=== PATIENT | female | born 2000 ===

== ENCOUNTER 2020-02-22 17:41 | Outpatient (CLI) | payer MEDICAID ==
[~2020-02-22] VITALS: Ht 154 cm; Wt 73.1 kg
--- NOTE | 2020-02-22 17:50 | NUR ---
MADIHA HAMMER presented to unit via ambulatory from ED, accompanied by mother , with c/o POSS YEAST INFECTION/UTI. MADIHA HAMMER weighed, gowned, voided, and to bed. EFHM and TOCO applied, VS taken. MADIHA HAMMER oriented to bed controls, call light, TV, heat, and A/C controls.
[2020-02-22 18:05] VITALS: BP 112/66
[2020-02-22 18:30] VITALS: BP 112/66
--- NOTE | 2020-02-22 18:45 | NUR ---
Dr Brown notified per phone of pt admission and complaints of yeast infection and bumps. Called office Friday and received Diflucan. Stated noticed bumps and become more tender today. On external exam noted white discharge with many lesions on external labia and internal vaginal area. Denies herpes or any STD. Currently with father of baby. Ordered wet prep, viral culture of lesions and cath UA. Procedures done at 1900. Pt tolerated well except more pain with insertion of staright catheter. Mother at bedside. Frequent movement. Denies cramping - pt having some uterine irritability.
[2020-02-22 19:29] LABS: BILIRUBIN,URINE NEGATIVE (NEGATIVE); CLARITY,URINE CLEAR; COLOR,URINE YELLOW; GLUCOSE, URINE (UA) NEGATIVE (NEGATIVE); KETONES,URINE TRACE (NEGATIVE); LEUKOCYTE ESTERASE ,URINE TRACE (NEGATIVE); NITRITE,URINE NEGATIVE (NEGATIVE); PH,URINE 6.5 (5-9); PROTEIN,URINE TRACE (NEGATIVE)
[2020-02-22 19:36] LABS: BACTERIA,URINE FEW /HPF; RBC,URINE 0-2 /HPF
[2020-02-22 19:37] LABS: RENAL EPITHELIAL CELLS,URINE 0-2 /HPF
[2020-02-22 19:38] LABS: AMORPHOUS SEDIMENT,UR MOD AMOR URATES /LPF; GRANULAR CASTS,URINE 0-2 /LPF
--- NOTE | 2020-02-22 20:00 | NUR ---
Discharge instructions reviewed with pt and mother. Pt denies any questions or concerns. Signature sheet signed, placed on chart. Pt ambulating off unit at time to private vehicle. No signs of distress noted.
--- NOTE | 2020-02-23 10:52 | Physician Query-Final Dx ---
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
== END 2020-02-22 20:00 | disposition home or self-care (01) ==
LOC: LDRP 17:41 → WSo 17:41
PROVIDERS: ATTEND Obstetrics & Gynecology
DX: O98.819 Other maternal infectious and parasitic diseases complicating pregnancy, unspecified trimester (principal); B37.3 Candidiasis of vulva and vagina; Z3A.00 Weeks of gestation of pregnancy not specified
CPT/HCPCS: 81000; 87088; 87210; 87252; 99214

== ENCOUNTER → 2020-03-13 | Outpatient (CLI) | payer MEDICAID ==
--- NOTE | 2020-03-13 13:47 | NUR ---
MADIHA HAMMER presented to unit via AMB from HOME FOR RHOGAM INJECTION. ORDER SENT TO BLOOD BANK.
--- NOTE | 2020-03-13 14:25 | NUR ---
RHOGAM IM IN LEFT VG SITE. SITE CLEAR.
--- NOTE | 2020-03-13 14:30 | NUR ---
DISMISSED AMB FROM WS IN STABLE CONDITION.
== END ==
LOC: LAB 13:34
PROVIDERS: ATTEND Obstetrics & Gynecology
DX: O26.899 Other specified pregnancy related conditions, unspecified trimester (principal)

== ENCOUNTER → 2020-03-31 | Outpatient (CLI) | payer MEDICAID | LOC: MERGE 12:24 → LABNPT 12:24 | PROVIDERS: ATTEND Obstetrics & Gynecology | DX: O28.8 Other abnormal findings on antenatal screening of mother (principal); Z3A.00 Weeks of gestation of pregnancy not specified | CPT/HCPCS: 82570; 84156 ==

== ENCOUNTER 2020-05-16 05:34 | Outpatient (CLI) | payer MEDICAID ==
[~2020-05-16] VITALS: Ht 154.9 cm; Wt 78.6 kg
[2020-05-16] MEDS ORDERED: VALA500T4 PO (14:23)
[2020-05-16] MEDS ORDERED: PREN-8 PO (14:23)
== END 2020-05-16 14:32 | disposition home or self-care (01) ==
LOC: PREOP 05:34
PROVIDERS: ATTEND Obstetrics & Gynecology
DX: Z01.818 Encounter for other preprocedural examination (principal)

== ENCOUNTER 2020-05-19 06:01 | Inpatient (IN) | payer MEDICAID ==
[~2020-05-19] VITALS: Ht 154.9 cm; Wt 78.1 kg
[2020-05-19] VITALS (11 sets, daily range): BP systolic 85–129; BP diastolic 44–81
[~2020-05-19 06:01] MED LIST: CITRIC ACID/SOB CIT (BICITRA) 30 ML UDC ONE; FAMOTIDINE 20MG/2ML IV (PEPCID) ONE; LACTATED RINGERS 1,000 ML IV ONE; METOCLOPRAMIDE INJ 10 MG/2 ML (REGLAN) ONE; PREN-8 PO; VALA500T4 PO; ceFAZolin 2 GM IV Premixed 50 ML ONE; metroNIDAZOLE 500MG/100ML IVPB 100 ML ONE
--- NOTE | 2020-05-19 06:08 | NUR ---
MADIHA HAMMER presented to unit via ambulatory from ED, accompanied by guest, with c/o TERM WITH HISTORY HSV. MADIHA HAMMER weighed, gowned, voided, and to bed. EFHM and TOCO applied, VS taken. MADIHA HAMMER oriented to bed controls, call light, TV, heat, and A/C controls. above and further assessments per effie michelle.
[2020-05-19] MEDS ORDERED: LACTATED RINGERS 1,000 ML IV PRN ×3 (06:14)
[2020-05-19] MEDS ORDERED: metroNIDAZOLE 500MG/100ML IVPB 100 ML IV ONE ×2 (06:15→06:30)
[2020-05-19] MEDS ORDERED: METOCLOPRAMIDE INJ 10 MG/2 ML (REGLAN) IV ONE (06:15)
[2020-05-19] MEDS ORDERED: ceFAZolin 2 GM IV Premixed 50 ML IV ONE ×2 (06:15→06:30)
[2020-05-19] MEDS ORDERED: FAMOTIDINE 20MG/2ML IV (PEPCID) IV ONE (06:15)
[2020-05-19] MEDS ORDERED: CITRIC ACID/SOB CIT (BICITRA) 30 ML UDC PO ONE (06:15)
[2020-05-19 06:35] LABS: BASOPHILS % (AUTO) 0 % (0-10); EOSINOPHILS # (AUTO) 0.2 10^3/uL (0.0-0.3); EOSINOPHILS % (AUTO) 1 % (0-10); HEMATOCRIT 31 % (35-52); HEMOGLOBIN 9.6 G/DL (11.5-16.0); LYMPHOCYTES # (AUTO) 3.1 X 10^3 (1.0-4.0); LYMPHOCYTES % (AUTO) 24 % (12-44); MEAN CORPUSCULAR HEMOGLOBIN 22 PG (25-34); MEAN CORPUSCULAR HGB CONC 31 G/DL (32-36); MEAN CORPUSCULAR VOLUME 71 FL (80-99); MEAN PLATELET VOLUME 10.8 FL (7.4-10.4); MONOCYTES # (AUTO) 0.9 X 10^3 (0.0-1.0); MONOCYTES % (AUTO) 7 % (0-12); NEUTROPHILS # (AUTO) 8.9 X 10^3 (1.8-7.8); NEUTROPHILS % (AUTO) 68 % (42-75); PLATELET COUNT 264 10^3/uL (130-400); RED CELL DISTRIBUTION WIDTH 17.4 % (10.0-14.5)
--- NOTE | 2020-05-19 06:39 | NUR ---
SCRNA in room at bedside.
[2020-05-19] MEDS ORDERED: OXYTOCIN PRE-MIX DRIP 1,000 ML IV ONE (06:50)
[2020-05-19] MEDS ORDERED: fentaNYL INJECTION 100 MCG/2 ML AMP ONE (06:51)
[2020-05-19] MEDS ORDERED: BUPIVACAINE 0.5% 30 ML (SENSORCAINE) VIAL ONE (06:51)
[2020-05-19] MEDS ORDERED: D5 LR IV SOLUTION 1,000 ML IV SCH (07:26)
[2020-05-19] MEDS ORDERED: OXYTOCIN PRE-MIX DRIP 500 ML IV SCH (07:26)
--- NOTE | 2020-05-19 07:26 | History & Physical ---
History and Physical Date Seen by Provider: May 19, 2020 Time Seen by Provider: 07:24 This patient is a 20-year-old 1 female presenting now for primary delivery due to term at 38 weeks gestation with prodrome for HSV-2. Patient denies rupture membranes or bleeding. Her GBS culture was negative. Patient is having regular contractions but feels little or no pressure or pain. She has noted some small red and vesicular lesions on the labia. Her has been uncomplicated except for the newly diagnosed HSV-2 Allergies are none Medications are vitamins and Valtrex 500 mg once a day Medical social and surgical histories are per the antepartum record HEENT exam is normal Neck is supple no lymphadenopathy no thyromegaly Abdomen is gravid soft nontender nondistended Extremities show no clubbing or cyanosis. There is no Homans sign. Pelvic exam is deferred Assessment and plan at 38 weeks gestation with a history of HSV with primary episode during this . Patient complains of prodrome symptoms with labial irritation burning and new-onset lesions on the labia. Plan is to proceed with primary delivery. 38 week gestation with HSV prodrome Allergies and Home Medications Allergies Coded Allergies: No Known Drug Allergies (Unverified , 05/19/20) Home Medications Docusate Sodium 100 Mg Capsule, 100 MG PO BID Prescribed by: JEAN LEWIS on 05/19/20728 Ibuprofen 800 Mg Tablet, 800 MG PO Q6HR Prescribed by: JEAN LEWIS on 05/19/20728 Oxycodone HCl/Acetaminophen 1 Each Tablet, 1 TAB PO Q4HR PRN for PAINMODS Prescribed by: JEAN LEWIS on 05/19/20728 Vit W-Ca,Fe,FA(<1 mg) 1 Each Tablet, 1 EACH PO DAILY, (Reported) Valacyclovir HCl 500 Mg Tablet, 500 MG PO DAILY, (Reported) Patient Home Medication List Home Medication List Reviewed: Yes Clinical Quality Measures DVT/VTE Risk/Contraindication: Risk Factor Score Per Nursin RFS Level Per Nursing on Admit: 1=Low/No VTE PPX JEAN MEYER MD May 19, 2020 07:26
--- NOTE | 2020-05-19 07:26 | NUR ---
Off of monitor and ambulated to OR. Addendum: 05/19/20 at 0757 by JODY DELVALLE RN R 155 with accelerations. Contractions 5-6 minutes apart lasting 100 seconds. Pt not aware of contractions.
[2020-05-19] MEDS ORDERED: OXYC1TAB12 PO (07:29)
[2020-05-19] MEDS ORDERED: IBUP-1780 PO (07:29)
[2020-05-19] MEDS ORDERED: DCS100C PO (07:29)
[2020-05-19] MEDS ORDERED: ONDANSETRON 4 MG/2 ML (SDV) Z0FRAN IVP PRN ×2 (07:30→08:45)
[2020-05-19] MEDS ORDERED: TETANUS,DIPTH,PERTUSS P/F (BOOSTRIX) 0.5 ML VIAL IM ONE (07:30)
[2020-05-19] MEDS ORDERED: MEASLES,MUMPS,RUBELLA 1 EA INJ SC ONE (07:30)
--- NOTE | 2020-05-19 07:30 | Discharge Inst-Surgical ---
Discharge Inst-Surgical Depart Medication/Instructions New, Converted or Re-Newed RX: RX on Chart Consults/Follow Up Patient Instructions: As directed Orders & Referrals Follow Up Appt: RTC 1 week for incision check. Call to make follow up appt. for patient in 4 weeks. Wound Care: Remove jacek, apply benzoin and steri strips. Activity Per routine post instructions. Please call in RX to patient pharmacy. Diet as tolerated Patient may shower or tub bathe as desired. Continue home meds Activity Activity as Tolerated: No Diet Discharge Diet: No Restrictions JEAN MEYER MD May 19, 2020 07:30
[2020-05-19] MEDS ORDERED: PHENYLEPHRINE 100 MCG/ML 10 ML (ANESTHESIA) SYR ONE (07:40)
[2020-05-19] MEDS ORDERED: ONDANSETRON 4 MG/2 ML (SDV) Z0FRAN ONE (08:03)
[2020-05-19] MEDS ORDERED: HYDROmorphone 2 MG/ML VIAL (DILAUDID) IV ONE (08:45)
[2020-05-19] MEDS ORDERED: DOCUSATE SODIUM 100 MG (COLACE) CAP PO SCH (09:00)
[2020-05-19] MEDS: KETOROLAC 30 MG/ML VIAL IVP SCH ×3 (09:02→21:35)
--- NOTE | 2020-05-19 09:15 | NUR ---
Dr Zimmerman here to discuss need to transfer son Addendum: 05/19/20 at 1021 by JODY DELVALLE RN Parents agreed with transfer to [facility] in [place]. 1000 Dad in to [facility]ter
[2020-05-19] MEDS: oxyCODONE/APAP 10/325MG (PERCOCET 10) TABLET PO PRN ×3 (11:01→21:36)
[2020-05-19] MEDS: DOCUSATE SODIUM 100 MG (COLACE) CAP PO SCH ×2 (11:01→21:35)
--- NOTE | 2020-05-19 11:34 | NUR ---
Message to Dr Brown regarding transfer of to [place].
[2020-05-19] MEDS ORDERED: IBUPROFEN 800 MG (MOTRIN) TAB PO SCH (12:00)
--- NOTE | 2020-05-19 12:26 | OPERATIVE REPORT ---
DATE OF SERVICE: 05/19/2020 PREOPERATIVE DIAGNOSES: Term at 39 weeks' gestation with history of HSV with program, admitted for primary delivery due to HSV. POSTOPERATIVE DIAGNOSIS: Term at 39 weeks' gestation with history of HSV with program, admitted for primary delivery due to HSV. OPERATIVE PROCEDURE: Primary low transverse delivery of a viable male infant with Apgars of 7 and 8 at 1 and 5 minutes respectively, weight of 7 pounds and 15 ounces. Cord blood pH of 7.27 and a time of 07:51. OPERATIVE DESCRIPTION: With the patient in supine position under satisfactory spinal analgesia, she was prepped and draped in the usual fashion for abdominal surgery. Gonzalez catheter was placed in the urinary bladder. A Pfannenstiel incision was made through the skin with a scalpel, the patient's abdomen entered in the usual manner. Bladder retractor placed in position, clean scalpel used to make a 4 cm hysterotomy incision transversely across the lower uterine segment. That was extended by blunt dissection as well. On hysterotomy copious dark green amniotic fluid was released. Guerrero forceps were applied to facilitate delivery of the viable male . had Apgars and stats as noted above. The infant was bulb suctioned on delivery of the head and again on completion of delivery. Umbilical cord was doubly clamped after completion of delivery. The was then passed to the pediatric nurse in attendance for delivery. Cord bloods were obtained. The placenta delivered spontaneously Avitia. It was normal with a 3-vessel cord. The uterus was exteriorized, anteriorly wiped clean with a wet laparotomy sponge. Uterine incision closed with running locked suture of 2-0 Vicryl. Hemostasis was satisfactory, but the uterus was relatively atonic. A modified B-Hills suture was placed to ensure hemostasis and to prevent excessive bleeding. With the B-Hills suture performed, the uterus was returned to abdominal cavity. All blood clot and debris was removed from the abdominal cavity. Sponge and needle counts were now correct, hemostasis assured. The anterior parietal peritoneum was closed with running suture of 2-0 Vicryl. Rectus muscles were closed with that suture as well. The rectus fascia was closed with 2-0 Vicryl, subcutaneous tissue was closed with 2-0 Vicryl and the skin was stapled. Sponge and needle counts were correct on completion of the procedure. Estimated blood loss was around 400 mL. The patient tolerated the procedure well and was transferred to recovery room in stable condition. The infant had been taken stable to the full term nursery under the care of the pediatric nurse. Job ID: [id number] DocumentID: [id number] Dictated Date: 05/19/2020 08:13:36 Tumbler Plater Date: 05/19/2020 12:26:09 Dictated By: JEAN MEYER MD
--- NOTE | 2020-05-19 14:30 | NUR ---
Assisted up to BR - voided 700 ml. tolerated activity well. at bedside.
--- NOTE | 2020-05-19 15:59 | NUR ---
Report received from SIDDHARTHA Spicer. care assumed of pt.
--- NOTE | 2020-05-19 18:00 | NUR ---
no sx's of distress noted. no c/o's voiced.
--- NOTE | 2020-05-19 19:11 | NUR ---
report given to SIDDHARTHA Dominguez.
[2020-05-20 01:12] VITALS: BP 109/65
[2020-05-20] MEDS: KETOROLAC 30 MG/ML VIAL IVP SCH (03:18)
[2020-05-20 06:20] VITALS: BP 107/63
--- NOTE | 2020-05-20 07:44 | Progress Note ---
Standard Progress Note Progress Notes/Assess & Plan Date Seen by a Provider: May 20, 2020 Time Seen by a Provider: 07:43 Progress/Assessment & Plan This patient is without complaint. She is ambulating, voiding, tolerating oral intake well has good pain control. She is requesting discharge home. Her baby was transferred to [facility] and is doing well Vital Signs Date Time Temp Pulse Resp B/P (MAP) Pulse Ox O2 Delivery O2 Flow Rate FiO2 05/20/20 06:20 36.8 113 18 107/63 (78) 98 Room Air 05/20/20 01:12 36.8 106 18 109/65 (80) 98 Room Air 05/19/20 21:36 36.9 99 18 115/70 (85) 100 Room Air 05/19/20 12:40 36.8 92 22 114/58 (76) 98 Room Air 05/19/20 10:50 36.7 92 16 109/76 (87) Room Air 05/19/20 09:45 36.5 87 16 112/67 (82) 100 Nasal Cannula 05/19/20 09:15 36.7 20 106/73 (84) 100 Room Air 05/19/20 09:15 Room Air 05/19/20 09:02 36.7 05/19/20 09:00 Room Air 05/19/20 09:00 36.6 19 100/72 (81) 100 Room Air 05/19/20 08:45 Room Air 05/19/20 08:45 36.7 17 100/66 (77) 100 Room Air 05/19/20 08:30 36.8 14 96/70 (79) 100 Room Air 05/19/20 08:30 Room Air 05/19/20 08:19 Room Air 05/19/20 08:19 36.9 17 85/44 (58) 96 Room Air I & O 05/20/20 07:00 Intake Total 1850 ml Output Total 1600 ml Balance 250 ml Vital signs are stable. Patient is afebrile. The abdomen is benign. The fundus is firm below the umbilicus and nontender. The incision is clean dry and intact. Extremities show no clubbing cyanosis. There is no Homans sign. Assessment and plan postoperative day number 1 status post primary delivery at 38+ weeks gestation. Patient is doing well and will be discharged so that she may see her baby in [place]. Follow-up will be in clinic Final Diagnosis 38 week primary delivery JEAN MEYER MD May 20, 2020 07:44
--- NOTE | 2020-05-20 07:45 | NUR ---
here to see pt. dismissal orders received.
--- NOTE | 2020-05-20 09:45 | NUR ---
up to shower.
--- NOTE | 2020-05-20 10:41 | Anesthesia-Regional Post-Op ---
Regional Patient Condition Mental Status: Alert, Oriented x3 Circulation: Same as Pre-Op Headache: Absent Sensation: Full Recovery Motor Block: Absent Post Op Complications Complications None Follow Up Care/Instructions Patient Instructions None needed. Anesthesia/Patient Condition Patient is doing well, no complaints, stable vital signs, no apparent adverse anesthesia problems. No complications reported per nursing. SUNNY BROWN CRNA May 20, 2020 10:41
[2020-05-20] MEDS: DOCUSATE SODIUM 100 MG (COLACE) CAP PO SCH (10:44)
[2020-05-20 10:50] VITALS: BP 128/80
--- NOTE | 2020-05-20 10:50 | NUR ---
initial shift assessment completed, see interventions for further. POC reviewed, states understanding. schedule medications given, see eMar for further. Rhogam IM given in Rt.AT.
[2020-05-20] MEDS: oxyCODONE/APAP 10/325MG (PERCOCET 10) TABLET PO PRN (10:51)
--- NOTE | 2020-05-20 10:58 | NUR ---
dismissal instructions given, verbalizes understanding. reviewed dismissal medications dosage and administration schedule. instructed pt to schedule 1 & 4 week follow up appointments. signature page signed, placed on chart.
--- NOTE | 2020-05-20 11:15 | NUR ---
pt dismissed to private vehicle via w/c with mother and this RN @ side. pt stable with no sx's of distress noted.
--- NOTE | 2020-05-20 11:32 | NUR ---
motrin & fadi Rx called into [facility] per pt's choice.
== END 2020-05-20 11:15 | disposition home or self-care (01) | DRG 788 ==
LOC: LDRP 06:01
PROVIDERS: ADMIT Obstetrics & Gynecology; ATTEND Obstetrics & Gynecology
PROC: 10D00Z1 Extraction of Products of Conception, Low, Open Approach (ICD-10-PCS; principal; 2020-05-19 07:26)
DX: O98.32 Other infections with a predominantly sexual mode of transmission complicating childbirth (principal); A60.04 Herpesviral vulvovaginitis; Z3A.38 38 weeks gestation of pregnancy; Z37.0 Single live birth
CPT/HCPCS: 36415; 83033; 85025; 86850; 86900; 86901; 87081